=== PATIENT | male | born 1955 | race Caucasian/White ===

== ENCOUNTER 2018-07-10 21:33 | Observation (INO) | payer MEDICARE, BC ==
[2018-07-10 22:02] LABS: Glucose,Whole Blood 105 mg/dL (75-99)
--- NOTE | 2018-07-10 22:16 | ED ---
General Adult HPI - General Chief complaint: Recheck/Abnormal Lab/Rx Stated complaint: elevated blood sugar Time Seen by Provider: 07/10/18 21:39 Source: patient, EMS Mode of arrival: EMS - History of Present Illness Initial comments: Dictation was produced using V[employer] dictation software. please excuse any grammatical, word or spelling errors. Chief Complaint: 62-year-old male with past medical history of diabetes mellitus presents via transfer from [facility] for DKA. History of Present Illness: A 62-year-old male. His multiple comorbidities including diabetes. Patient is [id number] he just takes metformin. He was initially seen by his primary care physician for the chief complaint of leg cramping. Denies that he had abnormal vital signs and check some labs. He is found have elevated blood sugar. He was sent to the emergency Department were more labs are as obtained. Patient given intravenous fluids is found to have diabetic ketoacidosis with a mild gap. He was transferred to our facility because they do not have any intensive care unit beds. Patient states he feels well at the moment. Denies any pain complaints. He does have some cramping in his legs still while en route what EMS his sugar was controlled down to 100. His insulin drip was stopped. The ROS documented in this emergency department record has been reviewed and confirmed by me. Those systems with pertinent positive or negative responses have been documented in the HPI. All other systems are other negative and/or noncontributory. PHYSICAL EXAM: General Impression: Alert and oriented x3, not in acute distress HEENT: Normocephalic atraumatic, extra-ocular movements intact, pupils equal and reactive to light bilaterally, mucous membranes moist. Cardiovascular: Heart regular rate and rhythm, S1&S2 audible, no murmurs, rubs or gallops Chest: Lungs clear to auscultation bilaterally, no rhonchi, no wheeze, no rales Abdomen: Bowel sounds present, abdomen soft, non-tender, non-distended, no organomegaly Musculoskeletal: Pulses present and equal in all extremities, no peripheral edema Motor: no focal deficits noted Neurological: CN II-XII grossly intact, no focal motor or sensory deficits noted Skin: Intact with no visualized rashes Psych: Normal affect and mood ED course: 62-year-old male transferred from [facility] for diabetic ketoacidosis. Vital signs upon arrival are within acceptable limits. Patient's well-appearing. Transfer packet was reviewed by myself. Patient appeared to be in very mild acidosis. He is well-appearing and stable vital signs. Patient's insulin drip was discontinued by EMS. Patient is well-appearing at this time. He is continued on intravenous fluids. Discussed patient case with Dr. alves who is willing to accept admission. - Related Data Home Medications Medication Instructions Recorded Confirmed Aspirin [[place] Aspirin EC] 81 mg PO DAILY 07/10/18 07/10/18 Gabapentin [Neurontin] 300 mg PO BID 07/10/18 07/10/18 Lisinopril 20 mg PO DAILY 07/10/18 07/10/18 Loratadine 10 mg PO HS 07/10/18 07/10/18 Montelukast Sodium [Singulair] 10 mg PO HS 07/10/18 07/10/18 Multivitamins, Thera [Multivitamin 1 tab PO DAILY 07/10/18 07/10/18 (formulary)] Simvastatin 10 mg PO HS 07/10/18 07/10/18 Tamsulosin HCl [Flomax] 0.4 mg PO HS 07/10/18 07/10/18 Topiramate [Topamax] 25 mg PO BID 07/10/18 07/10/18 levETIRAcetam 1,500 mg PO BID 07/10/18 07/10/18 metFORMIN HCL 1,000 mg PO BID 07/10/18 07/10/18 Allergies Allergy/AdvReac Type Severity Reaction Status Date / Time coconut Allergy Anaphylaxis Verified 07/10/18 22:18 Review of Systems ROS Statement: Those systems with pertinent positive or pertinent negative responses have been documented in the HPI. ROS Other: All systems not noted in ROS Statement are negative. Past Medical History Past Medical History: CVA/TIA, Diabetes Mellitus, Hypertension Additional Past Medical History / Comment(s): stroke 2008 History of Any Multi-Drug Resistant Organisms: None Reported Past Surgical History: Joint Replacement, Orthopedic Surgery Additional Past Surgical History / Comment(s): left shoulder replacement Smoking Status: Former smoker Past Alcohol Use History: None Reported Past Drug Use History: None Reported Course Vital Signs 07/10/18 21:37 Temperature 98.1 F Pulse Rate 86 Respiratory 16 Rate Blood Pressure 126/86 O2 Sat by Pulse 94 L Oximetry Medical Decision Making - Lab Data Lab Results 07/10/18 Range/Units 22:00 POC Glucose (mg/dL) 105 H (75-99) mg/dL POC Glu [employer] ID Disposition Clinical Impression: Hyperglycemia, Acidosis Disposition: ADMITTED IP TO THIS HOSP Condition: Fair Referrals: Nerissa Holliday DO [Primary Care Provider] - 1-2 days Decision Time: 23:00
[2018-07-10] MEDS ORDERED: NALOXONE 0.4 MG/ML 1 ML VIAL IV PRN (23:01)
[2018-07-11 00:30] VITALS: BMI 32.4
[2018-07-11] MEDS: ACETAMINOPHEN TAB 325 MG TAB PO PRN ×2 (00:53→15:35)
[2018-07-11] MEDS: SODIUM CHLORIDE 0.9% 1,000 ML IV SCH ×2 (00:57→12:04)
[2018-07-11] MEDS ORDERED: LORATADINE 10 MG TAB PO SCH ×2 (01:30→21:00)
[2018-07-11] MEDS: GABAPENTIN 300 MG CAP PO SCH ×2 (01:39→08:47)
[2018-07-11 07:06] LABS: Glucose,Whole Blood 282 mg/dL (75-99)
[2018-07-11] MEDS ORDERED: PANTOPRAZOLE 40 MG TABLET PO SCH (07:30)
[2018-07-11] MEDS ORDERED: ASPIRIN 81 MG PO SCH (09:00)
[2018-07-11] MEDS ORDERED: GABAPENTIN 300 MG CAP PO SCH (09:00)
[2018-07-11] MEDS ORDERED: TOPIRAMATE 25 MG TAB PO SCH (09:00)
[2018-07-11] MEDS ORDERED: LISINOPRIL 20 MG TAB PO SCH (09:00)
[2018-07-11] MEDS ORDERED: metFORMIN 500 MG TAB PO SCH (09:00)
[2018-07-11] MEDS ORDERED: LINAGLIPTIN 5 MG TABLET PO SCH (11:15)
[2018-07-11 11:33] LABS: Glucose,Whole Blood 349 mg/dL (75-99)
[2018-07-11] MEDS: INSULIN ASPART (NovoLOG) 100 UNIT/ML VIAL SQ SCH ×2 (12:03→17:25)
[2018-07-11 12:24] VITALS: BP 119/86; PULSE 83; RESP 18; TEMP 98.1
--- NOTE | 2018-07-11 14:05 | P.HPIM ---
History of Present Illness H&P Date: 07/11/18 Chief Complaint: Hyperglycemia HISTORY AND PHYSICAL AND DISCHARGE SUMMARY: This is a 62-year-old male patient of Dr. Holliday with past medical history of a CVA in 2007 followed by multiple TIAs. Patient initially had right sided paralysis and speech involvement and lost his memory and symptoms have significantly improved. He currently walks with a cane. He was treated at [facility] status post thrombectomy and went to [facility] for rehab. Patient also has past medical history of diabetes mellitus type 2, hypertension, hyperlipidemia, benign prostatic hypertrophy, chronic headaches, diabetic neuropathy and seasonal ALLERGIES. The patient states that he went to the doctor's to be examined for cramps in his lower extremities and been going on for 3 Weeks. He was unable to sleep because of the cramps. He had lab work done in the office and then was called and was told that his blood sugar was 400 and he was instructed to go to the hospital. Patient initially presented to [facility] and was subsequently transferred to [facility] emergency center. The patient was initially treated with insulin drip which has subsequently been discontinued. Patient has been maintained on his metformin and we are also adding in Januvia for home. Patient's blood sugars have improved and he has no other symptoms and will be discharged home today in stable condition. Patient also gives history of hospitalization in March at [facility] for 5 days due to a blood sugar of 700. Patient does state that he has a brother that will pick him up. He has a scheduled appointment with Dr. Holliday on Tuesday. Review of Systems All systems: negative Constitutional: Denies chills, Denies fatigue, Denies fever, Denies lethargy, Denies malaise, Denies weakness Eyes: denies blurred vision, denies pain Ears, nose, mouth and throat: Denies dysphagia, Denies headache, Denies nasal congestion, Denies nasal discharge, Denies sore throat, Denies vertigo Cardiovascular: Denies chest pain, Denies decreased exercise tolerance, Denies dyspnea on exertion, Denies edema, Denies leg edema, Denies lightheadedness, Denies shortness of breath, Denies syncope Respiratory: Denies cough, Denies cough with sputum, Denies dyspnea, Denies ex cessive sputum, Denies hemoptysis, Denies home oxygen, Denies wheezing Gastrointestinal: Denies abdominal pain, Denies diarrhea, Denies loss of appetite, Denies nausea, Denies vomiting Genitourinary: Denies dysuria Musculoskeletal: Denies frequent falls, Denies gait dysfunction, Denies muscle weakness, Denies myalgias Integumentary: Denies pruritus, Denies rash, Denies wounds Neurological: Denies aphasia, Denies confusion, Denies numbness, Denies seizures, Denies weakness Psychiatric: Denies anxiety, Denies depression Endocrine: Denies fatigue, Denies weight change Past Medical History Past Medical History: CVA/TIA, Diabetes Mellitus, Hypertension Additional Past Medical History / Comment(s): stroke 2008 status post thrombectomy History of Any Multi-Drug Resistant Organisms: None Reported Past Surgical History: Joint Replacement, Orthopedic Surgery Additional Past Surgical History / Comment(s): left shoulder replacement, thrombectomy, Lasix surgery Past Anesthesia/Blood Transfusion Reactions: No Reported Reaction Smoking Status: Former smoker Past Alcohol Use History: None Reported Additional Past Alcohol Use History / Comment(s): Patient was a smoker and alcohol drinker for 67 years. He smoked up to 3 packs per day but quit 30 years ago. Past Drug Use History: None Reported - Past Family History Father Family Medical History: Cancer Additional Family Medical History / Comment(s): Father in his 80s from liver cancer. He also had history of diabetes. Mother Additional Family Medical History / Comment(s): Mother in her 80s with history of diabetes. Patient has 2 brothers and one sister and he does not know the medical history. Patient has 6 children, 2 girls and 3 boys. One son at age 23 from possible myocardial infarction. Medications and Allergies Home Medications Medication Instructions Recorded Confirmed Type Aspirin [[place] Aspirin EC] 81 mg PO DAILY 07/10/18 07/10/18 History Gabapentin [Neurontin] 300 mg PO BID 07/10/18 07/10/18 History Lisinopril 20 mg PO DAILY 07/10/18 07/10/18 History Loratadine 10 mg PO HS 07/10/18 07/10/18 History Montelukast Sodium [Singulair] 10 mg PO HS 07/10/18 07/10/18 History Multivitamins, Thera [Multivitamin 1 tab PO DAILY 07/10/18 07/10/18 History (formulary)] Simvastatin 10 mg PO HS 07/10/18 07/10/18 History Tamsulosin HCl [Flomax] 0.4 mg PO HS 07/10/18 07/10/18 History Topiramate [Topamax] 25 mg PO BID 07/10/18 07/10/18 History levETIRAcetam 1,500 mg PO BID 07/10/18 07/10/18 History Ubidecarenone [Co Q-10] 100 mg PO DAILY #30 capsule 07/11/18 Rx sitaGLIPtin PHOS/metFORMIN HCL 1 each PO BID #60 tab 07/11/18 Rx [Janumet 50-1,000 mg Tablet] Allergies Allergy/AdvReac Type Severity Reaction Status Date / Time coconut Allergy Anaphylaxis Verified 07/10/18 22:18 Physical Exam Vitals: Vital Signs Temp Pulse Pulse Resp BP BP Pulse Ox 07/11/18 05:09 97.7 F 82 16 109/76 95 07/11/18 00:23 97.8 F 88 18 130/85 95 07/10/18 23:34 96 16 108/87 100 07/10/18 21:37 98.1 F 86 16 126/86 94 L Intake and Output 07/10/18 07/11/18 07/11/18 22:59 06:59 14:59 Intake Total 400 Balance 400 Intake: Intake, IV Titration 400 Amount Sodium Chloride 0.9% 1, 400 000 ml @ 80 mls/hr IV . [id number] [facility] Rx#:[id number] Other: Voiding Method Toilet Toilet Weight 88.451 kg Gen: This is a 62-year-old obese female. He is resting in bed and appears to be comfortable and in no acute distress. HEENT: Head is atraumatic, normocephalic. Pupils equal, round. Sclerae is anicteric. NECK: Supple. No JVD. No lymphadenopathy. No thyromegaly. LUNGS: Clear to auscultation. No wheezes or rhonchi. No intercostal retractions. HEART: Regular rate and rhythm. No murmur. ABDOMEN: Soft. Bowel sounds are present. No masses. No tenderness. EXTREMITIES: No pedal edema. No calf tenderness. NEUROLOGICAL: Patient is awake, alert and oriented x3. Cranial nerves 2 through 12 are grossly intact. Results Labs: Abnormal Lab Results - Last 24 Hours (Table) 07/10/18 07/11/18 Range/Units 22:00 07:03 POC Glucose (mg/dL) 105 H 282 H (75-99) mg/dL Thrombosis Risk Factor Assmnt - Choose All That Apply Any of the Below Risk Factors Present?: Yes Each Factor Represents 1 point: Obesity (BMI >25) Other Risk Factors: Yes Each Risk Factor Represents 2 Points: Age 61-74 years Other congenital or acquired thrombophilia - If yes, enter type in comment: No Thrombosis Risk Factor Assessment Total Risk Factor Score: 3 Thrombosis Risk Factor Assessment Level: Moderate Risk Assessment and Plan Plan: 1. Hyperglycemia. Continue metformin 1000 mg twice daily, insulin scale. Patient will be transitioned to Janumet mg twice daily for home. 2. History of CVA. 3. Diabetic neuropathy. 4. Hyperlipidemia. 5. Hypertension. 6. Chronic headaches. 7. Seasonal ALLERGIES. Patient places in observation status. Discharge plan: Home Discharge Medication List Aspirin [[place] Aspirin EC] 81 mg PO DAILY 07/10/18 [History] Gabapentin [Neurontin] 300 mg PO BID 07/10/18 [History] Lisinopril 20 mg PO DAILY 07/10/18 [History] Loratadine 10 mg PO HS 07/10/18 [History] Montelukast Sodium [Singulair] 10 mg PO HS 07/10/18 [History] Multivitamins, Thera [Multivitamin (formulary)] 1 tab PO DAILY 07/10/18 [History] Simvastatin 10 mg PO HS 07/10/18 [History] Tamsulosin HCl [Flomax] 0.4 mg PO HS 07/10/18 [History] Topiramate [Topamax] 25 mg PO BID 07/10/18 [History] levETIRAcetam 1,500 mg PO BID 07/10/18 [History] Ubidecarenone [Co Q-10] 100 mg PO DAILY #30 capsule 07/11/18 [Rx] sitaGLIPtin PHOS/metFORMIN HCL [Janumet 50-1,000 mg Tablet] 1 each PO BID #60 tab 07/11/18 [Rx] Impression and plan of care have been directed as dictated by the signing physician. Dianne Khan nurse practitioner acting as scribe for signing physician.
[2018-07-11 14:37] LABS: Glucose,Whole Blood 324 mg/dL (75-99)
[2018-07-11] MEDS ORDERED: INSULIN ASPART (NovoLOG) 100 UNIT/ML VIAL SQ ONE (14:45)
[2018-07-11 17:08] LABS: Glucose,Whole Blood 235 mg/dL (75-99)
[2018-07-11] MEDS ORDERED: ATORVASTATIN 10 MG TAB PO SCH (21:00)
== END 2018-07-11 18:33 | disposition home or self-care (01) ==
LOC: EC 21:33 → 3NMEDONC 23:02
PROVIDERS: ADMIT Internal Medicine; ATTEND Internal Medicine
DX: E11.10 Type 2 diabetes mellitus with ketoacidosis without coma (principal); E87.2 Acidosis; E11.65 Type 2 diabetes mellitus with hyperglycemia; E78.5 Hyperlipidemia, unspecified; N40.0 Benign prostatic hyperplasia without lower urinary tract symptoms; E11.40 Type 2 diabetes mellitus with diabetic neuropathy, unspecified; J30.2 Other seasonal allergic rhinitis; I10 Essential (primary) hypertension; I69.928 Other speech and language deficits following unspecified cerebrovascular disease; I69.951 Hemiplegia and hemiparesis following unspecified cerebrovascular disease affecting right dominant side; Z79.82 Long term (current) use of aspirin; Z79.84 Long term (current) use of oral hypoglycemic drugs; Z79.899 Other long term (current) drug therapy; Z96.612 Presence of left artificial shoulder joint; Z87.891 Personal history of nicotine dependence; Z80.0 Family history of malignant neoplasm of digestive organs; Z83.3 Family history of diabetes mellitus
CPT/HCPCS: 99285; 36415; G0378 ×2